=== PATIENT | male | born 1995 | race Caucasian/White ===

== ENCOUNTER 2021-04-23 21:17 | Emergency (ER) | payer SELFPAY ==
--- NOTE | 2021-04-23 21:50 | EDPHYS ---
Physician Documentation [facility] Name: Humberto Roger Jr Age: 26 yrs Sex: Male : 1995 Arrival Date: 04/23/2021 Time: : Bed 13 Private MD: ED Physician Josh Guidry HPI: 04/23 21:41 This 26 yrs old Female presents to ER via Unassigned with complaints of Sore rn Throat, Swollen Glands. 21:41 The patient presents with sore throat. The patient describes throat pain as rn intermittent, raw. Onset: The symptoms/episode began/occurred 4 day(s) ago. Severity of symptoms: At their worst the symptoms were mild, in the emergency department the symptoms are unchanged. Modifying factors: The symptoms are alleviated by nothing, the symptoms are aggravated by swallowing, Patient's oral intake status: good. Associated signs and symptoms: Pertinent positives: rhinorrhea, Sore throat Pertinent negatives chest pain, chills, fever, shortness of breath. The patient has not experienced similar symptoms in the past. The patient has not recently seen a physician. . Patient reports seen 4 days ago at [facility], diagnosed with strep, taking cefdinir, reports nasal congestion making sore throat worse. No change in voice. Reports not better but not worse. . Historical: - Allergies: 21:47 No Known Allergies; lp1 - Home Meds: 21:47 None [Active]; lp1 - PMHx: 21:47 None; lp1 - PSHx: 21:47 ACL Repair; lp1 - Immunization history:: Adult Immunizations up to date. - Family history:: not pertinent. - Social history:: Smoking status: Patient reports the use of cigarette tobacco products, smokes one pack cigarettes per day. - Hospitalizations: : No recent hospitalization is reported. ROS: 21:41 Constitutional: Negative for fever, chills, and weight loss, Eyes: Negative for injury, rn pain, redness, and discharge, ENT: + sore throat and congestion Neck: Negative for injury, pain, and swelling, Cardiovascular: Negative for chest pain, palpitations, and edema, Respiratory: Negative for shortness of breath, cough, wheezing, and pleuritic chest pain, Abdomen/GI: Negative for abdominal pain, nausea, vomiting, diarrhea, and constipation, MS/Extremity: Negative for injury and deformity, Skin: Negative for injury, rash, and discoloration, Neuro: Negative for headache, weakness, numbness, tingling, and seizure. Exam: 21:41 Constitutional: This is a well developed, well nourished patient who is awake, alert, rn and in no acute distress. Head/Face: Normocephalic, atraumatic. Eyes: Periorbital areas with no swelling, redness, or edema. ENT: + tonsillar hypertrophy with exudate, + kissing tonsils. Uvula midline. No sign of peritonsillar abscess. Secretions tolerated well. Neck: + tender bilateral cervical LAD. No meningismus. Neuro: Awake and alert, GCS 15, oriented to person, place, time, and situation. Cranial nerves II-XII grossly intact. Motor strength 5/5 in all extremities. Sensory grossly intact. Cerebellar exam normal. Normal gait. Vital Signs: 21:41 BP 116 / 81; Pulse 73; Resp 16; Temp 98.4(O); Pulse Ox 97% on R/A; Weight 68.04 kg (R); lp1 Height 5 ft. 10 in. (177.80 cm); 22:03 BP 120 / 78; Pulse 74; Resp 18; Pulse Ox 100% on R/A; df1 21:41 Body Mass Index 21.52 (68.04 kg, 177.80 cm) lp1 MDM: 21:23 Patient medically screened. rn 21:48 Differential diagnosis: pharyngitis, tonsillitis, upper respiratory infection. Data rn reviewed: vital signs, nurses notes, and as a result, I will discharge patient. Counseling: I had a detailed discussion with the patient and/or guardian regarding: the historical points, exam findings, and any diagnostic results supporting the discharge/admit diagnosis, the need for outpatient follow up, to return to the emergency department if symptoms worsen or persist or if there are any questions or concerns that arise at home. Special discussion: I discussed with the patient/guardian in detail that at this point there is no indication for admission to the hospital. It is understood, however, that if the symptoms persist or worsen the patient needs to return immediately for re-evaluation. Administered Medications: 22:01 Drug: Bicillin L-A (penicillin G Benzathine) 1.2 million units Route: IM; Site: right df1 gluteus; 22:10 Follow up: Response: No adverse reaction df1 22:01 Drug: Decadron (dexamethasone) 10 mg Route: IM; Site: right gluteus; df1 22:10 Follow up: Response: No adverse reaction df1 Disposition Summary: 04/23/21 21:49 Discharge Ordered Location: Home rn Problem: an ongoing problem rn Symptoms: have improved rn Condition: Stable rn Diagnosis - Acute tonsillitis, unspecified rn Followup: rn - With: Private Physician - When: As needed - Reason: Recheck today's complaints, Re-evaluation by your physician Discharge Instructions: - Discharge Summary Sheet rn - Tonsillitis rn Forms: - Medication Reconciliation Form rn - Thank You Letter rn - Antibiotic supervisor [employer] - Prescription Opioid Use rn Prescriptions: - Medrol (Marcello) 4 mg Oral Tablets, Dose Pack - take 1 tablet by ORAL route as directed - follow package instructions; 1 rn packet; Refills: 0, Product Selection Permitted Signatures: Josh Guidry MD MD rn Sofy Chinchilla RN RN lp1 Mary Evangelista df1
--- NOTE | 2021-04-23 21:50 | ER ---
Nurse's Notes [facility] Name: Humberto Roger Jr Age: 26 yrs Sex: Male : 1995 Arrival Date: 04/23/2021 Time: 21:22 Bed 13 Private MD: Diagnosis: Acute tonsillitis, unspecified Presentation: 04/23 21:41 Chief complaint: Patient states: Diagnosed with Strep 04/19/21 and given Cefdinir 300mg lp1 PO BID x 10 days; Reports feeling increased swelling to throat, pain and difficulty swallowing. Coronavirus screen: At this time, the client does not indicate any symptoms associated with coronavirus-19. Ebola Screen: No symptoms or risks identified at this time. Initial Sepsis Screen: Does the patient meet any 2 criteria? No. Patient's initial sepsis screen is negative. Does the patient have a suspected source of infection? No. Patient's initial sepsis screen is negative. Risk Assessment: Do you want to hurt yourself or someone else? Patient reports no desire to harm self or others. Onset of symptoms was April 23, 2021. 21:41 Method Of Arrival: Ambulatory lp1 21:41 Acuity: JACKY 3 lp1 Triage Assessment: 22:09 General: Appears in no apparent distress. Behavior is calm, cooperative. df1 Historical: - Allergies: 21:47 No Known Allergies; lp1 - Home Meds: 21:47 None [Active]; lp1 - PMHx: 21:47 None; lp1 - PSHx: 21:47 ACL Repair; lp1 - Immunization history:: Adult Immunizations up to date. - Family history:: not pertinent. - Social history:: Smoking status: Patient reports the use of cigarette tobacco products, smokes one pack cigarettes per day. - Hospitalizations: : No recent hospitalization is reported. Screenin:48 Abuse screen: Denies threats or abuse. Denies injuries from another. Nutritional lp1 screening: No deficits noted. Tuberculosis screening: No symptoms or risk factors identified. Fall Risk None identified. Assessment: 22:02 Pain: Complains of pain in neck Pain currently is 5 out of 10 on a pain scale. df1 Respiratory: No deficits noted. Breath sounds are clear bilaterally. Respiratory: Airway is patent Respiratory effort is even, unlabored. EENT: Throat is reddened has patchy exudate has enlarged tonsils bilaterally with gag reflex present, Reports difficulty swallowing nasal congestion pain. Vital Signs: 21:41 BP 116 / 81; Pulse 73; Resp 16; Temp 98.4(O); Pulse Ox 97% on R/A; Weight 68.04 kg (R); lp1 Height 5 ft. 10 in. (177.80 cm); 22:03 BP 120 / 78; Pulse 74; Resp 18; Pulse Ox 100% on R/A; df1 21:41 Body Mass Index 21.52 (68.04 kg, 177.80 cm) lp1 ED Course: 21:22 Patient arrived in ED. 21:23 Josh Guidry MD is Attending Physician. rn 21:45 Triage completed. lp1 21:47 Arm band placed on. lp1 21:48 Patient has correct armband on for positive identification. lp1 21:50 Mary Evangelista is Primary Nurse. df1 22:09 No provider procedures requiring assistance completed. Patient did not have IV access df1 during this emergency room visit. Administered Medications: 22:01 Drug: Bicillin L-A (penicillin G Benzathine) 1.2 million units Route: IM; Site: right df1 gluteus; 22:10 Follow up: Response: No adverse reaction df1 22:01 Drug: Decadron (dexamethasone) 10 mg Route: IM; Site: right gluteus; df1 22:10 Follow up: Response: No adverse reaction df1 Outcome: 21:49 Discharge ordered by . rn 22:09 Discharged to home df1 22:09 Condition: good 22:09 Discharge instructions given to patient, significant other, Instructed on discharge instructions, follow up and referral plans. medication usage, Demonstrated understanding of instructions, follow-up care, medications, Prescriptions given X 1. 22:11 Patient left the ED. df1 Signatures: Josh Guidry MD MD rn Pena, Laura, RN RN lp1 Luann Larsen Mary Evangelista df1 Corrections: (The following items were deleted from the chart) 21:47 21:41 BP 116 / 81; Pulse 73bpm; Resp 16bpm; Pulse Ox 97% RA; Temp 98.4F Oral; lp1 lp1
[2021-04-23] MEDS ORDERED: dexAMETHasone 10 MG/ML VIAL ONE (22:16)
[2021-04-23] MEDS ORDERED: PEN G BENZ LA 1.2MU/2ML SYRINGE IM ONE (22:18)
[2021-04-23 23:40] VITALS: TEMP 98.4
[2021-04-23 23:42] VITALS: BP 120/78; O2SAT 100
== END 2021-04-23 22:11 | disposition home or self-care (01) ==
LOC: ER 21:17 → EDSEX 21:17 → ER 22:11
DX: J03.90 Acute tonsillitis, unspecified (principal); F17.210 Nicotine dependence, cigarettes, uncomplicated
CPT/HCPCS: 96372; 99283; J0561; J1100

== ENCOUNTER 2024-03-27 13:39 | Emergency (ER) | payer SELFPAY ==
[2024-03-27] MEDS ORDERED: KETOROLAC 30 MG/ML INJ ONE (14:49)
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
[2024-03-27 17:09] VITALS: TEMP 97.6; O2SAT 100
[2024-03-27 17:11] VITALS: BP 120/87
== END 2024-03-27 16:40 | disposition home or self-care (01) ==
LOC: ER 13:39
DX: M54.12 Radiculopathy, cervical region (principal); M54.9 Dorsalgia, unspecified; V53.5XXA Driver of pick-up truck or van injured in collision with car, pick-up truck or van in traffic accident, initial encounter
CPT/HCPCS: 70450; 72125; 72128; 72131; 96372; 99284